=== PATIENT | male | born 1940 | race African-American/Black ===

== ENCOUNTER 2017-12-02 14:26 | Inpatient (IN) | payer MEDICARE, MEDICAID ==
[~2017-12-02] VITALS: Ht 180.3 cm; Wt 111.6 kg
[~2017-12-02 14:26] MED LIST: ASPI-1159 PO; CLOP75TA33 PO; DORZ10DR7 EACHEYE; LISI-604 PO; NAMENDA 5 MG PO; POTA10CA42 PO; PRED5DRO7 EACHEYE; TAMS0.4C31 PO; VALS320T2 PO
[2017-12-02 14:30] VITALS: BP 147/76
[2017-12-02 15:41] VITALS: BP 147/76
[2017-12-02] MEDS ORDERED: ACETAMINOPHEN 650MG SUPP PR PRN (16:30)
[2017-12-02] MEDS ORDERED: FLUCONAZOLE 100 MG/50ML BAG 100 MG in BAG 0 EACH IV SCH (16:30)
[2017-12-02] MEDS ORDERED: DEXTROSE 50% WATER 50ML SYRINGE IV PRN (16:30)
[2017-12-02] MEDS: BLOOD SUGAR DIAGNOSTIC STRIP TEST SCH ×2 (17:02→21:33)
[2017-12-02] MEDS: DORZOLAMIDE 2% OPHTH 10 ML BOTTLE EACHEYE SCH (17:20)
[2017-12-02] MEDS: PREDNISOLONE ACETATE 1% OPHTH DROPS 1ML EACHEYE SCH (17:21)
[2017-12-02] MEDS: INSULIN LISPRO 100 UNITS/ML SUBCUT SCH ×2 (17:38→21:00)
[2017-12-02 20:00] VITALS: BP 143/78
[2017-12-02] MEDS: IPRATROPIUM/ALBUTEROL 0.5-3(2.5)MG/3ML NEB HHN SCH ×2 (20:06→23:56)
[2017-12-02 20:30] VITALS: BP 138/69
[2017-12-02] MEDS: LOSARTAN POTASSIUM 50 MG TABLET PO SCH (21:00)
[2017-12-02] MEDS: TERBUTALINE SULFATE 2.5MG TABLET PO SCH (22:06)
[2017-12-02] MEDS: DILTIAZEM HCL 60MG TABLET PO SCH (22:08)
[2017-12-02] MEDS: INSULIN DETEMIR UD 100 UNITS/ML SYR SUBCUT SCH (22:15)
[2017-12-02] MEDS: FLUCONAZOLE 100 MG/50ML BAG 100 MG in BAG 0 EACH IV SCH (23:00)
[2017-12-03] MEDS: IPRATROPIUM/ALBUTEROL 0.5-3(2.5)MG/3ML NEB HHN SCH ×6 (04:10→23:57)
[2017-12-03] MEDS: BLOOD SUGAR DIAGNOSTIC STRIP TEST SCH ×4 (06:02→21:00)
[2017-12-03] MEDS: DILTIAZEM HCL 60MG TABLET PO SCH ×3 (06:36→22:02)
[2017-12-03] MEDS: INSULIN LISPRO 100 UNITS/ML SUBCUT SCH ×4 (06:40→22:17)
[2017-12-03 06:52] LABS: BASOPHILS % 0.2 % (0.0-2.0); EOSINOPHILS % 0.2 % (0.0-5.0); HEMATOCRIT. 37.7 % (42.0-52.0); HEMOGLOBIN. 12.1 g/dL (14.0-18.0); LYMPHOCYTES % 8.9 % (20.0-50.0); MEAN CORPUSCULAR HEMOGLOBIN 27.4 pg (28.0-32.0); MEAN CORPUSCULAR VOLUME 85.6 fL (80.0-94.0); MEAN PLATELET VOLUME 9.9 fl (7.4-10.4); MONOCYTES % 7.9 % (2.0-8.0); NEUTROPHILS % 82.8 % (40.0-76.0); PLATELET 168 x1000/uL (130-400); RED BLOOD CELL COUNT 4.41 mill/uL (4.7-6.1); RED CELL DISTRIBUTION WIDTH 13.8 % (11.6-14.6)
[2017-12-03 07:46] LABS: CARBON DIOXIDE 28 mEq/L (21-32); CHLORIDE 101 mEq/L (98-107)
[2017-12-03 08:00] VITALS: BP 119/72
[2017-12-03] MEDS: PANTOPRAZOLE SODIUM 40 MG/VIAL IV SCH (09:03)
[2017-12-03] MEDS: LOSARTAN POTASSIUM 50 MG TABLET PO SCH ×2 (09:04→22:03)
[2017-12-03] MEDS: DOCUSATE SODIUM 250MG CAPSULE PO SCH (09:04)
[2017-12-03] MEDS: CLOPIDOGREL 75MG TABLET PO SCH (09:04)
[2017-12-03] MEDS: ASPIRIN 81MG EC TABLET PO SCH (09:04)
[2017-12-03] MEDS: PREDNISONE 20MG TABLET PO SCH (09:04)
[2017-12-03] MEDS: SPIRONOLACTONE 25MG TABLET PO SCH (09:04)
[2017-12-03] MEDS: ISOSORB DINIT/HYDRALAZINE HCL 20/37.5MG TABLET PO SCH (09:05)
[2017-12-03] MEDS: DORZOLAMIDE 2% OPHTH 10 ML BOTTLE EACHEYE SCH ×2 (09:05→16:55)
[2017-12-03] MEDS: HYDROCHLOROTHIAZIDE 25MG TABLET PO SCH (09:05)
[2017-12-03] MEDS: TERBUTALINE SULFATE 2.5MG TABLET PO SCH ×3 (09:05→22:03)
[2017-12-03] MEDS: PREDNISOLONE ACETATE 1% OPHTH DROPS 1ML EACHEYE SCH ×2 (09:06→16:56)
[2017-12-03 09:57] LABS: PREALBUMIN 25.8 mg/dL (20.0-40.0)
[2017-12-03] MEDS: INSULIN DETEMIR UD 100 UNITS/ML SYR SUBCUT SCH ×2 (11:07→22:18)
[2017-12-03 20:00] VITALS: BP 142/72
[2017-12-03] MEDS: FLUCONAZOLE 100 MG/50ML BAG 100 MG in BAG 0 EACH IV SCH (21:59)
[2017-12-04] MEDS: IPRATROPIUM/ALBUTEROL 0.5-3(2.5)MG/3ML NEB HHN SCH ×5 (04:06→21:01)
[2017-12-04] MEDS: BLOOD SUGAR DIAGNOSTIC STRIP TEST SCH ×4 (06:31→21:34)
[2017-12-04] MEDS: DILTIAZEM HCL 60MG TABLET PO SCH ×3 (06:32→21:50)
[2017-12-04] MEDS: INSULIN LISPRO 100 UNITS/ML SUBCUT SCH ×4 (06:36→21:52)
[2017-12-04 07:15] LABS: BASOPHILS % 0.2 % (0.0-2.0); EOSINOPHILS % 0.1 % (0.0-5.0); HEMATOCRIT. 37.8 % (42.0-52.0); HEMOGLOBIN. 12.3 g/dL (14.0-18.0); LYMPHOCYTES % 8.4 % (20.0-50.0); MEAN CORPUSCULAR HEMOGLOBIN 27.8 pg (28.0-32.0); MEAN CORPUSCULAR VOLUME 85.5 fL (80.0-94.0); MEAN PLATELET VOLUME 9.4 fl (7.4-10.4); MONOCYTES % 8.4 % (2.0-8.0); NEUTROPHILS % 82.9 % (40.0-76.0); PLATELET 148 x1000/uL (130-400); RED BLOOD CELL COUNT 4.42 mill/uL (4.7-6.1)
[2017-12-04 08:13] VITALS: BP 124/66
[2017-12-04] MEDS: TERBUTALINE SULFATE 2.5MG TABLET PO SCH ×3 (08:19→21:43)
[2017-12-04] MEDS: PANTOPRAZOLE SODIUM 40 MG/VIAL IV SCH (08:19)
[2017-12-04] MEDS: ASPIRIN 81MG EC TABLET PO SCH (08:19)
[2017-12-04] MEDS: HYDROCHLOROTHIAZIDE 25MG TABLET PO SCH (08:19)
[2017-12-04] MEDS: LOSARTAN POTASSIUM 50 MG TABLET PO SCH ×2 (08:19→21:50)
[2017-12-04] MEDS: ISOSORB DINIT/HYDRALAZINE HCL 20/37.5MG TABLET PO SCH (08:19)
[2017-12-04] MEDS: CLOPIDOGREL 75MG TABLET PO SCH (08:19)
[2017-12-04] MEDS: DOCUSATE SODIUM 250MG CAPSULE PO SCH (08:19)
[2017-12-04] MEDS: PREDNISONE 20MG TABLET PO SCH (08:19)
[2017-12-04] MEDS: SPIRONOLACTONE 25MG TABLET PO SCH (08:20)
[2017-12-04] MEDS: PREDNISOLONE ACETATE 1% OPHTH DROPS 1ML EACHEYE SCH ×2 (08:24→17:25)
[2017-12-04] MEDS: DORZOLAMIDE 2% OPHTH 10 ML BOTTLE EACHEYE SCH ×2 (08:24→17:25)
[2017-12-04 08:37] LABS: CARBON DIOXIDE 27 mEq/L (21-32); CHLORIDE 102 mEq/L (98-107); PHOSPHORUS 3.1 mg/dL (2.5-4.9); TOTAL IRON BINDING CAPACITY 206 ug/dL (250-450)
[2017-12-04 08:44] LABS: VITAMIN B12 SERUM > 2000.0 pg/mL (211-911)
[2017-12-04] MEDS: INSULIN DETEMIR UD 100 UNITS/ML SYR SUBCUT SCH ×2 (11:17→21:52)
[2017-12-04 11:50] LABS: FERRITIN 556 ng/mL (22-322)
[2017-12-04 20:00] VITALS: BP 110/48
[2017-12-04] MEDS: FLUCONAZOLE 100 MG/50ML BAG 100 MG in BAG 0 EACH IV SCH (21:43)
[2017-12-05] MEDS: IPRATROPIUM/ALBUTEROL 0.5-3(2.5)MG/3ML NEB HHN SCH ×6 (01:19→19:49)
[2017-12-05] MEDS: BLOOD SUGAR DIAGNOSTIC STRIP TEST SCH ×4 (05:43→21:41)
[2017-12-05] MEDS: DILTIAZEM HCL 60MG TABLET PO SCH ×3 (05:43→21:37)
[2017-12-05] MEDS: INSULIN LISPRO 100 UNITS/ML SUBCUT SCH ×4 (06:45→21:44)
[2017-12-05 07:46] LABS: CLARITY URINE CLEAR (CLEAR); COLOR URINE YELLOW (YELLOW); KETONES URINE NEGATIVE (NEGATIVE); LEUKOCYTE ESTERASE URINE NEGATIVE (NEGATIVE); NITRITE URINE NEGATIVE (NEGATIVE); OCCULT BLOOD URINE NEGATIVE (NEGATIVE); PROTEIN URINE NEGATIVE (NEGATIVE); UROBILINOGEN URINE 0.2 E.U./dL (0.2-1.0)
[2017-12-05 08:00] VITALS: BP 153/81
[2017-12-05] MEDS: DORZOLAMIDE 2% OPHTH 10 ML BOTTLE EACHEYE SCH ×2 (08:31→16:13)
[2017-12-05] MEDS: PREDNISOLONE ACETATE 1% OPHTH DROPS 1ML EACHEYE SCH ×2 (08:31→16:14)
[2017-12-05] MEDS: ISOSORB DINIT/HYDRALAZINE HCL 20/37.5MG TABLET PO SCH (08:35)
[2017-12-05] MEDS: CLOPIDOGREL 75MG TABLET PO SCH (08:35)
[2017-12-05] MEDS: TERBUTALINE SULFATE 2.5MG TABLET PO SCH ×3 (08:35→21:42)
[2017-12-05] MEDS: PANTOPRAZOLE SODIUM 40 MG/VIAL IV SCH (08:36)
[2017-12-05] MEDS: SPIRONOLACTONE 25MG TABLET PO SCH (08:36)
[2017-12-05] MEDS: HYDROCHLOROTHIAZIDE 25MG TABLET PO SCH (08:36)
[2017-12-05] MEDS: ASPIRIN 81MG EC TABLET PO SCH (08:36)
[2017-12-05] MEDS: DOCUSATE SODIUM 250MG CAPSULE PO SCH (08:36)
[2017-12-05] MEDS: PREDNISONE 20MG TABLET PO SCH (08:36)
[2017-12-05] MEDS: LOSARTAN POTASSIUM 50 MG TABLET PO SCH ×2 (08:36→20:55)
[2017-12-05] MEDS: INSULIN DETEMIR UD 100 UNITS/ML SYR SUBCUT SCH ×2 (10:44→21:45)
[2017-12-05 13:40] VITALS: BP 118/54
[2017-12-05 20:00] VITALS: BP 108/46
[2017-12-05] MEDS: FLUCONAZOLE 100 MG/50ML BAG 100 MG in BAG 0 EACH IV SCH (21:42)
[2017-12-06] MEDS: IPRATROPIUM/ALBUTEROL 0.5-3(2.5)MG/3ML NEB HHN SCH ×6 (00:07→21:13)
[2017-12-06] MEDS: BLOOD SUGAR DIAGNOSTIC STRIP TEST SCH ×4 (05:51→21:01)
[2017-12-06] MEDS: DILTIAZEM HCL 60MG TABLET PO SCH ×3 (05:51→21:02)
[2017-12-06] MEDS: INSULIN LISPRO 100 UNITS/ML SUBCUT SCH ×4 (05:52→21:41)
[2017-12-06 06:41] LABS: BASOPHILS % 0.2 % (0.0-2.0); EOSINOPHILS % 0.3 % (0.0-5.0); HEMATOCRIT. 36.6 % (42.0-52.0); HEMOGLOBIN. 11.9 g/dL (14.0-18.0); LYMPHOCYTES % 11.1 % (20.0-50.0); MEAN CORPUSCULAR HEMOGLOBIN 27.8 pg (28.0-32.0); MEAN CORPUSCULAR VOLUME 85.5 fL (80.0-94.0); MONOCYTES % 9.6 % (2.0-8.0); NEUTROPHILS % 78.8 % (40.0-76.0); PLATELET 157 x1000/uL (130-400); RED BLOOD CELL COUNT 4.28 mill/uL (4.7-6.1)
[2017-12-06 08:23] VITALS: BP 157/74
[2017-12-06] MEDS: DOCUSATE SODIUM 250MG CAPSULE PO SCH (08:27)
[2017-12-06] MEDS: ASPIRIN 81MG EC TABLET PO SCH (08:27)
[2017-12-06] MEDS: TERBUTALINE SULFATE 2.5MG TABLET PO SCH ×3 (08:27→20:59)
[2017-12-06] MEDS: CLOPIDOGREL 75MG TABLET PO SCH (08:27)
[2017-12-06] MEDS: LOSARTAN POTASSIUM 50 MG TABLET PO SCH ×2 (08:27→20:59)
[2017-12-06] MEDS: PREDNISONE 20MG TABLET PO SCH (08:27)
[2017-12-06] MEDS: SPIRONOLACTONE 25MG TABLET PO SCH (08:28)
[2017-12-06] MEDS: PANTOPRAZOLE SODIUM 40 MG/VIAL IV SCH (08:28)
[2017-12-06] MEDS: HYDROCHLOROTHIAZIDE 25MG TABLET PO SCH (08:28)
[2017-12-06] MEDS: ISOSORB DINIT/HYDRALAZINE HCL 20/37.5MG TABLET PO SCH (08:28)
[2017-12-06] MEDS: DORZOLAMIDE 2% OPHTH 10 ML BOTTLE EACHEYE SCH ×2 (08:30→17:33)
[2017-12-06] MEDS: PREDNISOLONE ACETATE 1% OPHTH DROPS 1ML EACHEYE SCH ×2 (08:30→17:32)
[2017-12-06] MEDS: INSULIN DETEMIR UD 100 UNITS/ML SYR SUBCUT SCH ×2 (11:59→21:39)
[2017-12-06 20:00] VITALS: BP 120/59
[2017-12-06] MEDS: FLUCONAZOLE 100 MG/50ML BAG 100 MG in BAG 0 EACH IV SCH (21:41)
[2017-12-07] MEDS: IPRATROPIUM/ALBUTEROL 0.5-3(2.5)MG/3ML NEB HHN SCH ×6 (01:14→21:03)
[2017-12-07] MEDS: DILTIAZEM HCL 60MG TABLET PO SCH ×3 (05:37→21:01)
[2017-12-07] MEDS: BLOOD SUGAR DIAGNOSTIC STRIP TEST SCH ×4 (05:37→21:31)
[2017-12-07] MEDS: INSULIN LISPRO 100 UNITS/ML SUBCUT SCH ×4 (06:53→21:38)
[2017-12-07 08:00] VITALS: BP 136/81
[2017-12-07 08:38] LABS: BASOPHILS % 0.4 % (0.0-2.0); EOSINOPHILS % 0.4 % (0.0-5.0); HEMATOCRIT. 36.3 % (42.0-52.0); HEMOGLOBIN. 11.7 g/dL (14.0-18.0); LYMPHOCYTES % 12.6 % (20.0-50.0); MEAN CORPUSCULAR HEMOGLOBIN 27.8 pg (28.0-32.0); MEAN PLATELET VOLUME 10.1 fl (7.4-10.4); MONOCYTES % 7.3 % (2.0-8.0); NEUTROPHILS % 79.3 % (40.0-76.0); PLATELET 177 x1000/uL (130-400); RED BLOOD CELL COUNT 4.22 mill/uL (4.7-6.1)
[2017-12-07 10:19] LABS: CARBON DIOXIDE 26 mEq/L (21-32); CHLORIDE 101 mEq/L (98-107)
[2017-12-07] MEDS: SPIRONOLACTONE 25MG TABLET PO SCH (10:26)
[2017-12-07] MEDS: PREDNISONE 20MG TABLET PO SCH (10:26)
[2017-12-07] MEDS: ASPIRIN 81MG EC TABLET PO SCH (10:26)
[2017-12-07] MEDS: DOCUSATE SODIUM 250MG CAPSULE PO SCH (10:26)
[2017-12-07] MEDS: CLOPIDOGREL 75MG TABLET PO SCH (10:26)
[2017-12-07] MEDS: LOSARTAN POTASSIUM 50 MG TABLET PO SCH ×2 (10:26→21:01)
[2017-12-07] MEDS: ISOSORB DINIT/HYDRALAZINE HCL 20/37.5MG TABLET PO SCH (10:26)
[2017-12-07] MEDS: TERBUTALINE SULFATE 2.5MG TABLET PO SCH ×3 (10:26→21:00)
[2017-12-07] MEDS: HYDROCHLOROTHIAZIDE 25MG TABLET PO SCH (10:26)
[2017-12-07] MEDS: PANTOPRAZOLE SODIUM 40 MG/VIAL IV SCH (10:27)
[2017-12-07] MEDS: DORZOLAMIDE 2% OPHTH 10 ML BOTTLE EACHEYE SCH ×2 (10:27→16:13)
[2017-12-07] MEDS: PREDNISOLONE ACETATE 1% OPHTH DROPS 1ML EACHEYE SCH ×2 (10:27→16:13)
[2017-12-07] MEDS: INSULIN DETEMIR UD 100 UNITS/ML SYR SUBCUT SCH ×2 (10:40→21:38)
[2017-12-07] MEDS: METHYL SALICYLATE/MENTHOL CREAM 85GM TOP SCH ×3 (13:39→23:02)
[2017-12-07] MEDS: CLOTRIMAZOLE/BETAMETHASONE 1/0.05% CREAM 15GM TOP SCH (16:14)
[2017-12-07 20:00] VITALS: BP 132/87
[2017-12-07] MEDS: FLUCONAZOLE 100 MG/50ML BAG 100 MG in BAG 0 EACH IV SCH (21:01)
[2017-12-08] MEDS: IPRATROPIUM/ALBUTEROL 0.5-3(2.5)MG/3ML NEB HHN SCH ×6 (00:35→21:11)
[2017-12-08] MEDS: METHYL SALICYLATE/MENTHOL CREAM 85GM TOP SCH ×3 (05:03→18:29)
[2017-12-08] MEDS: DILTIAZEM HCL 60MG TABLET PO SCH ×3 (05:03→22:00)
[2017-12-08] MEDS: BLOOD SUGAR DIAGNOSTIC STRIP TEST SCH ×4 (06:32→21:00)
[2017-12-08] MEDS: INSULIN LISPRO 100 UNITS/ML SUBCUT SCH ×4 (06:47→22:51)
[2017-12-08 08:00] VITALS: BP 131/70
[2017-12-08] MEDS: HYDROCHLOROTHIAZIDE 25MG TABLET PO SCH (09:49)
[2017-12-08] MEDS: CLOPIDOGREL 75MG TABLET PO SCH (09:49)
[2017-12-08] MEDS: LOSARTAN POTASSIUM 50 MG TABLET PO SCH ×2 (09:49→22:41)
[2017-12-08] MEDS: PANTOPRAZOLE SODIUM 40 MG/VIAL IV SCH (09:49)
[2017-12-08] MEDS: DOCUSATE SODIUM 250MG CAPSULE PO SCH (09:49)
[2017-12-08] MEDS: PREDNISONE 20MG TABLET PO SCH (09:49)
[2017-12-08] MEDS: ISOSORB DINIT/HYDRALAZINE HCL 20/37.5MG TABLET PO SCH (09:50)
[2017-12-08] MEDS: ASPIRIN 81MG EC TABLET PO SCH (09:50)
[2017-12-08] MEDS: SPIRONOLACTONE 25MG TABLET PO SCH (09:50)
[2017-12-08] MEDS: DORZOLAMIDE 2% OPHTH 10 ML BOTTLE EACHEYE SCH ×2 (09:51→18:30)
[2017-12-08] MEDS: TERBUTALINE SULFATE 2.5MG TABLET PO SCH ×3 (09:51→22:40)
[2017-12-08] MEDS: CLOTRIMAZOLE/BETAMETHASONE 1/0.05% CREAM 15GM TOP SCH ×2 (09:52→18:30)
[2017-12-08] MEDS: PREDNISOLONE ACETATE 1% OPHTH DROPS 1ML EACHEYE SCH ×2 (09:52→18:30)
[2017-12-08] MEDS: INSULIN DETEMIR UD 100 UNITS/ML SYR SUBCUT SCH ×2 (11:39→22:52)
[2017-12-08 20:00] VITALS: BP 144/82
[2017-12-08] MEDS ORDERED: AMIKACIN SULFATE 750 MG in SODIUM CHLORIDE 0.9% 100 ML IV NR (20:00)
[2017-12-09] MEDS: IPRATROPIUM/ALBUTEROL 0.5-3(2.5)MG/3ML NEB HHN SCH ×6 (00:46→19:57)
[2017-12-09 04:12] LABS: 25-HYDROXY VITAMIN D3 15 ng/mL (.)
[2017-12-09] MEDS: DILTIAZEM HCL 60MG TABLET PO SCH ×3 (06:22→22:00)
[2017-12-09] MEDS: METHYL SALICYLATE/MENTHOL CREAM 85GM TOP SCH ×4 (06:22→18:13)
[2017-12-09] MEDS: BLOOD SUGAR DIAGNOSTIC STRIP TEST SCH ×4 (06:22→21:25)
[2017-12-09] MEDS: INSULIN LISPRO 100 UNITS/ML SUBCUT SCH ×4 (06:22→21:30)
[2017-12-09 07:23] LABS: BASOPHILS % 0.2 % (0.0-2.0); EOSINOPHILS % 0.4 % (0.0-5.0); HEMATOCRIT. 36.3 % (42.0-52.0); LYMPHOCYTES % 10.9 % (20.0-50.0); MEAN CORPUSCULAR HEMOGLOBIN 28.4 pg (28.0-32.0); MEAN CORPUSCULAR VOLUME 85.6 fL (80.0-94.0); MEAN PLATELET VOLUME 9.9 fl (7.4-10.4); MONOCYTES % 7.8 % (2.0-8.0); NEUTROPHILS % 80.7 % (40.0-76.0); PLATELET 143 x1000/uL (130-400); RED BLOOD CELL COUNT 4.24 mill/uL (4.7-6.1)
[2017-12-09 08:16] VITALS: BP 137/84
[2017-12-09] MEDS: ASPIRIN 81MG EC TABLET PO SCH (08:46)
[2017-12-09] MEDS: PREDNISONE 20MG TABLET PO SCH (08:46)
[2017-12-09] MEDS: ISOSORB DINIT/HYDRALAZINE HCL 20/37.5MG TABLET PO SCH (08:46)
[2017-12-09] MEDS: TERBUTALINE SULFATE 2.5MG TABLET PO SCH ×3 (08:46→21:25)
[2017-12-09] MEDS: CLOPIDOGREL 75MG TABLET PO SCH (08:47)
[2017-12-09] MEDS: SPIRONOLACTONE 25MG TABLET PO SCH (08:47)
[2017-12-09] MEDS: LOSARTAN POTASSIUM 50 MG TABLET PO SCH ×2 (08:47→21:25)
[2017-12-09] MEDS: HYDROCHLOROTHIAZIDE 25MG TABLET PO SCH (08:47)
[2017-12-09] MEDS: DOCUSATE SODIUM 250MG CAPSULE PO SCH (08:48)
[2017-12-09] MEDS: PANTOPRAZOLE SODIUM 40 MG/VIAL IV SCH (08:49)
[2017-12-09] MEDS ORDERED: AMIKACIN 500MG in SODIUM CHLORIDE 0.9% 100ML IV SCH (09:00)
[2017-12-09] MEDS: DORZOLAMIDE 2% OPHTH 10 ML BOTTLE EACHEYE SCH ×2 (10:09→18:09)
[2017-12-09] MEDS: PREDNISOLONE ACETATE 1% OPHTH DROPS 1ML EACHEYE SCH ×2 (10:10→18:09)
[2017-12-09] MEDS: CLOTRIMAZOLE/BETAMETHASONE 1/0.05% CREAM 15GM TOP SCH ×2 (10:10→18:09)
[2017-12-09] MEDS: INSULIN DETEMIR UD 100 UNITS/ML SYR SUBCUT SCH ×2 (10:18→21:31)
[2017-12-09] MEDS ORDERED: ERGOCALCIFEROL 50000UNITS CAPSULE PO SCH (14:30)
[2017-12-09 20:04] VITALS: BP 141/64
[2017-12-10] MEDS: IPRATROPIUM/ALBUTEROL 0.5-3(2.5)MG/3ML NEB HHN SCH ×5 (00:03→21:30)
[2017-12-10] MEDS: METHYL SALICYLATE/MENTHOL CREAM 85GM TOP SCH ×4 (00:56→17:41)
[2017-12-10] MEDS ORDERED: AMIKACIN SULFATE 500 MG in SODIUM CHLORIDE 0.9% 100 ML IV SCH (04:00)
[2017-12-10] MEDS: DILTIAZEM HCL 60MG TABLET PO SCH ×3 (05:30→22:00)
[2017-12-10] MEDS: BLOOD SUGAR DIAGNOSTIC STRIP TEST SCH ×4 (05:32→21:46)
[2017-12-10] MEDS: INSULIN LISPRO 100 UNITS/ML SUBCUT SCH ×4 (06:21→21:52)
[2017-12-10 08:00] VITALS: BP 136/87
[2017-12-10] MEDS: SPIRONOLACTONE 25MG TABLET PO SCH (09:17)
[2017-12-10] MEDS: ISOSORB DINIT/HYDRALAZINE HCL 20/37.5MG TABLET PO SCH (09:17)
[2017-12-10] MEDS: ASPIRIN 81MG EC TABLET PO SCH (09:17)
[2017-12-10] MEDS: PREDNISONE 20MG TABLET PO SCH (09:17)
[2017-12-10] MEDS: HYDROCHLOROTHIAZIDE 25MG TABLET PO SCH (09:17)
[2017-12-10] MEDS: LOSARTAN POTASSIUM 50 MG TABLET PO SCH ×2 (09:17→21:46)
[2017-12-10] MEDS: CLOTRIMAZOLE/BETAMETHASONE 1/0.05% CREAM 15GM TOP SCH ×2 (09:18→17:41)
[2017-12-10] MEDS: DOCUSATE SODIUM 250MG CAPSULE PO SCH (09:18)
[2017-12-10] MEDS: TERBUTALINE SULFATE 2.5MG TABLET PO SCH ×3 (09:18→21:45)
[2017-12-10] MEDS: CLOPIDOGREL 75MG TABLET PO SCH (09:18)
[2017-12-10] MEDS: DORZOLAMIDE 2% OPHTH 10 ML BOTTLE EACHEYE SCH ×2 (09:19→16:36)
[2017-12-10] MEDS: PREDNISOLONE ACETATE 1% OPHTH DROPS 1ML EACHEYE SCH ×2 (09:19→16:36)
[2017-12-10] MEDS: PANTOPRAZOLE SODIUM 40 MG/VIAL IV SCH (09:20)
[2017-12-10] MEDS: INSULIN DETEMIR UD 100 UNITS/ML SYR SUBCUT SCH ×2 (09:26→21:53)
[2017-12-10 10:53] LABS: CARBON DIOXIDE 28 mEq/L (21-32); CHLORIDE 101 mEq/L (98-107)
[2017-12-10 20:00] VITALS: BP 115/68
[2017-12-11] MEDS ORDERED: AMIKACIN SULFATE 700 MG in SODIUM CHLORIDE 0.9% 100 ML IV SCH ×2
[2017-12-11] MEDS: IPRATROPIUM/ALBUTEROL 0.5-3(2.5)MG/3ML NEB HHN SCH ×6 (01:55→20:44)
[2017-12-11] MEDS: DILTIAZEM HCL 60MG TABLET PO SCH ×3 (06:00→23:12)
[2017-12-11] MEDS: METHYL SALICYLATE/MENTHOL CREAM 85GM TOP SCH ×5 (06:37→23:00)
[2017-12-11] MEDS: BLOOD SUGAR DIAGNOSTIC STRIP TEST SCH ×4 (06:37→21:00)
[2017-12-11] MEDS: PANTOPRAZOLE 40MG DR TABLET PO SCH (06:48)
[2017-12-11] MEDS: INSULIN LISPRO 100 UNITS/ML SUBCUT SCH ×4 (07:12→21:00)
[2017-12-11 08:00] VITALS: BP 142/85
[2017-12-11] MEDS: DOCUSATE SODIUM 250MG CAPSULE PO SCH (08:39)
[2017-12-11] MEDS: CLOPIDOGREL 75MG TABLET PO SCH (08:39)
[2017-12-11] MEDS: HYDROCHLOROTHIAZIDE 25MG TABLET PO SCH (08:40)
[2017-12-11] MEDS: ISOSORB DINIT/HYDRALAZINE HCL 20/37.5MG TABLET PO SCH (08:40)
[2017-12-11] MEDS: LOSARTAN POTASSIUM 50 MG TABLET PO SCH ×2 (08:40→23:00)
[2017-12-11] MEDS: TERBUTALINE SULFATE 2.5MG TABLET PO SCH ×3 (08:40→23:00)
[2017-12-11] MEDS: PREDNISONE 20MG TABLET PO SCH (08:40)
[2017-12-11] MEDS: SPIRONOLACTONE 25MG TABLET PO SCH (08:40)
[2017-12-11] MEDS: ASPIRIN 81MG EC TABLET PO SCH (08:40)
[2017-12-11] MEDS: CLOTRIMAZOLE/BETAMETHASONE 1/0.05% CREAM 15GM TOP SCH ×2 (08:41→18:17)
[2017-12-11] MEDS: PREDNISOLONE ACETATE 1% OPHTH DROPS 1ML EACHEYE SCH ×2 (08:41→18:17)
[2017-12-11] MEDS: DORZOLAMIDE 2% OPHTH 10 ML BOTTLE EACHEYE SCH ×2 (08:41→18:17)
[2017-12-11] MEDS: INSULIN DETEMIR UD 100 UNITS/ML SYR SUBCUT SCH ×2 (11:13→23:09)
[2017-12-11 20:00] VITALS: BP 120/78
[2017-12-12] MEDS: IPRATROPIUM/ALBUTEROL 0.5-3(2.5)MG/3ML NEB HHN SCH ×6 (00:54→21:24)
[2017-12-12] MEDS: BLOOD SUGAR DIAGNOSTIC STRIP TEST SCH ×4 (06:00→21:21)
[2017-12-12] MEDS: METHYL SALICYLATE/MENTHOL CREAM 85GM TOP SCH ×3 (06:05→17:44)
[2017-12-12] MEDS: DILTIAZEM HCL 60MG TABLET PO SCH ×3 (06:07→21:20)
[2017-12-12] MEDS: PANTOPRAZOLE 40MG DR TABLET PO SCH (06:08)
[2017-12-12] MEDS: INSULIN LISPRO 100 UNITS/ML SUBCUT SCH ×4 (06:14→21:25)
[2017-12-12 06:56] LABS: CARBON DIOXIDE 27 mEq/L (21-32); CHLORIDE 99 mEq/L (98-107)
[2017-12-12 07:15] LABS: BASOPHILS % 0.3 % (0.0-2.0); EOSINOPHILS % 0.6 % (0.0-5.0); HEMATOCRIT. 37.1 % (42.0-52.0); HEMOGLOBIN. 12.2 g/dL (14.0-18.0); LYMPHOCYTES % 15.1 % (20.0-50.0); MEAN CORPUSCULAR HEMOGLOBIN 28.3 pg (28.0-32.0); MEAN CORPUSCULAR VOLUME 85.6 fL (80.0-94.0); MEAN PLATELET VOLUME 10.1 fl (7.4-10.4); MONOCYTES % 7.1 % (2.0-8.0); NEUTROPHILS % 76.9 % (40.0-76.0); PLATELET 133 x1000/uL (130-400); RED BLOOD CELL COUNT 4.33 mill/uL (4.7-6.1); RED CELL DISTRIBUTION WIDTH 14.2 % (11.6-14.6)
[2017-12-12 08:00] VITALS: BP 149/75
[2017-12-12] MEDS: LOSARTAN POTASSIUM 50 MG TABLET PO SCH ×2 (08:48→21:20)
[2017-12-12] MEDS: DOCUSATE SODIUM 250MG CAPSULE PO SCH (08:48)
[2017-12-12] MEDS: ISOSORB DINIT/HYDRALAZINE HCL 20/37.5MG TABLET PO SCH (08:49)
[2017-12-12] MEDS: SPIRONOLACTONE 25MG TABLET PO SCH (08:49)
[2017-12-12] MEDS: CLOPIDOGREL 75MG TABLET PO SCH (08:49)
[2017-12-12] MEDS: HYDROCHLOROTHIAZIDE 25MG TABLET PO SCH (08:49)
[2017-12-12] MEDS: PREDNISONE 20MG TABLET PO SCH (08:49)
[2017-12-12] MEDS: ASPIRIN 81MG EC TABLET PO SCH (08:49)
[2017-12-12] MEDS: DORZOLAMIDE 2% OPHTH 10 ML BOTTLE EACHEYE SCH ×2 (08:50→16:38)
[2017-12-12] MEDS: PREDNISOLONE ACETATE 1% OPHTH DROPS 1ML EACHEYE SCH ×2 (08:50→16:38)
[2017-12-12] MEDS: CLOTRIMAZOLE/BETAMETHASONE 1/0.05% CREAM 15GM TOP SCH ×2 (08:51→16:38)
[2017-12-12] MEDS: TERBUTALINE SULFATE 2.5MG TABLET PO SCH ×3 (08:54→21:21)
[2017-12-12] MEDS: INSULIN DETEMIR UD 100 UNITS/ML SYR SUBCUT SCH ×2 (10:09→21:33)
[2017-12-12 20:00] VITALS: BP 132/58
[2017-12-13] MEDS: IPRATROPIUM/ALBUTEROL 0.5-3(2.5)MG/3ML NEB HHN SCH ×4 (00:46→11:41)
[2017-12-13] MEDS: METHYL SALICYLATE/MENTHOL CREAM 85GM TOP SCH ×3 (05:01→12:05)
[2017-12-13] MEDS: DILTIAZEM HCL 60MG TABLET PO SCH ×2 (06:02→13:07)
[2017-12-13] MEDS: BLOOD SUGAR DIAGNOSTIC STRIP TEST SCH ×2 (06:03→11:15)
[2017-12-13] MEDS: PANTOPRAZOLE 40MG DR TABLET PO SCH (06:03)
[2017-12-13] MEDS: INSULIN LISPRO 100 UNITS/ML SUBCUT SCH ×2 (06:41→12:08)
[2017-12-13 08:00] VITALS: BP 130/73
[2017-12-13] MEDS: HYDROCHLOROTHIAZIDE 25MG TABLET PO SCH (09:35)
[2017-12-13] MEDS: TERBUTALINE SULFATE 2.5MG TABLET PO SCH ×2 (09:35→13:09)
[2017-12-13] MEDS: SPIRONOLACTONE 25MG TABLET PO SCH (09:35)
[2017-12-13] MEDS: ISOSORB DINIT/HYDRALAZINE HCL 20/37.5MG TABLET PO SCH (09:35)
[2017-12-13] MEDS: DOCUSATE SODIUM 250MG CAPSULE PO SCH (09:35)
[2017-12-13] MEDS: CLOPIDOGREL 75MG TABLET PO SCH (09:36)
[2017-12-13] MEDS: LOSARTAN POTASSIUM 50 MG TABLET PO SCH (09:36)
[2017-12-13] MEDS: DORZOLAMIDE 2% OPHTH 10 ML BOTTLE EACHEYE SCH (09:36)
[2017-12-13] MEDS: ASPIRIN 81MG EC TABLET PO SCH (09:37)
[2017-12-13] MEDS: CLOTRIMAZOLE/BETAMETHASONE 1/0.05% CREAM 15GM TOP SCH (09:37)
[2017-12-13] MEDS: PREDNISOLONE ACETATE 1% OPHTH DROPS 1ML EACHEYE SCH (09:37)
[2017-12-13] MEDS: INSULIN DETEMIR UD 100 UNITS/ML SYR SUBCUT SCH (11:18)
[2017-12-13 14:33] VITALS: BP 130/73
[2017-12-14] MEDS ORDERED: PREDNISONE 10MG TABLET PO SCH (09:00)
== END 2017-12-13 15:45 | disposition home health service (06) | DRG 70 ==
PROVIDERS: ADMIT Physical Medicine & Rehabilitation Spinal Cord Injury Medicine; ATTEND Specialist
PROC: 0HBRXZZ Excision of Toe Nail, External Approach (ICD-10-PCS; principal; 2017-12-07)
PROC: 0HBRXZZ Excision of Toe Nail, External Approach (ICD-10-PCS; 2017-12-07)
PROC: 0HBRXZZ Excision of Toe Nail, External Approach (ICD-10-PCS; 2017-12-07)
PROC: 0HBRXZZ Excision of Toe Nail, External Approach (ICD-10-PCS; 2017-12-07)
PROC: 0HBRXZZ Excision of Toe Nail, External Approach (ICD-10-PCS; 2017-12-07)
PROC: 0HBRXZZ Excision of Toe Nail, External Approach (ICD-10-PCS; 2017-12-07)
PROC: 0HBRXZZ Excision of Toe Nail, External Approach (ICD-10-PCS; 2017-12-07)
PROC: 0HBRXZZ Excision of Toe Nail, External Approach (ICD-10-PCS; 2017-12-07)
PROC: 0HBRXZZ Excision of Toe Nail, External Approach (ICD-10-PCS; 2017-12-07)
PROC: 0HBRXZZ Excision of Toe Nail, External Approach (ICD-10-PCS; 2017-12-07)
DX: G93.41 Metabolic encephalopathy (principal); J96.01 Acute respiratory failure with hypoxia; I47.2 Ventricular tachycardia; R13.10 Dysphagia, unspecified; E11.22 Type 2 diabetes mellitus with diabetic chronic kidney disease; E87.8 Other disorders of electrolyte and fluid balance, not elsewhere classified; J98.11 Atelectasis; J44.1 Chronic obstructive pulmonary disease with (acute) exacerbation; I50.30 Unspecified diastolic (congestive) heart failure; I13.0 Hypertensive heart and chronic kidney disease with heart failure and stage 1 through stage 4 chronic kidney disease, or unspecified chronic kidney disease; N39.0 Urinary tract infection, site not specified; B35.1 Tinea unguium; B35.3 Tinea pedis; N18.3 Chronic kidney disease, stage 3 (moderate); D64.9 Anemia, unspecified; Z16.12 Extended spectrum beta lactamase (ESBL) resistance; I35.8 Other nonrheumatic aortic valve disorders; R53.81 Other malaise; F06.31 Mood disorder due to known physiological condition with depressive features; L84 Corns and callosities; E11.649 Type 2 diabetes mellitus with hypoglycemia without coma; F41.9 Anxiety disorder, unspecified; F32.9 Major depressive disorder, single episode, unspecified; F06.8 Other specified mental disorders due to known physiological condition; E87.6 Hypokalemia; E55.9 Vitamin D deficiency, unspecified; E11.42 Type 2 diabetes mellitus with diabetic polyneuropathy; R26.9 Unspecified abnormalities of gait and mobility; Z91.19 Patient's noncompliance with other medical treatment and regimen; Z87.891 Personal history of nicotine dependence; Z86.011 Personal history of benign neoplasm of the brain; Z79.02 Long term (current) use of antithrombotics/antiplatelets; Z91.041 Radiographic dye allergy status; Z91.010 Allergy to peanuts; Z79.899 Other long term (current) drug therapy; I69.322 Dysarthria following cerebral infarction
CPT/HCPCS: 36415; 73630; 80048; 80053; 80150; 81001; 82306; 82607; 82728; 82746; 82962; 83036; 83540; 83550; 83735; 84100; 84134; 84443; 84630; 85025; 87077; 87086; 87186; 92523; 92610; 93970; 94640; 94664; 97110; 97116; 97127; 97163; 97166; 97530; 97535; C9113; J0278; J1450; J1815; J7040; J7050; J7512; J7620